=== PATIENT | female | born 1935 | race Caucasian/White ===

== ENCOUNTER 2024-01-11 14:38 | Emergency (ER) | payer MEDICARE, OTHER ==
[~2024-01-11] VITALS: Ht 149.9 cm; Wt 52.2 kg
[2024-01-11 16:05] LABS: BASOPHILS % (AUTO) 0.2 % (0.0-2.0); EOSINOPHILS # (AUTO) 0.1 K/uL (0.0-0.7); EOSINOPHILS % (AUTO) 1.2 % (0.0-7.0); HEMATOCRIT 43.6 % (31.2-41.9); HEMOGLOBIN 14.4 g/dL (10.9-14.3); LYMPHOCYTES # (AUTO) 1.1 K/uL (0.8-4.8); LYMPHOCYTES % (AUTO) 13.5 % (20.5-51.5); MEAN CORPUSCULAR HEMOGLOBIN 29.7 uug (24.7-32.8); MEAN CORPUSCULAR HGB CONC 33 g/dL (32.3-35.6); MEAN CORPUSCULAR VOLUME 89.8 fL (75.5-95.3); MONOCYTES # (AUTO) 0.7 K/uL (0.1-1.30); MONOCYTES % (AUTO) 8.9 % (0.0-11.0); NEUTROPHILS # (AUTO) 6.2 K/uL (1.8-8.9); NEUTROPHILS % (AUTO) 76.2 % (38.5-71.5); PLATELET COUNT (AUTO) 173 K/uL (179-408); RED BLOOD CELL COUNT(AUTO) 4.85 MIL/uL (3.63-4.92); RED CELL DISTRIBUTION WIDTH 13.4 % (12.3-17.7); WHITE BLOOD COUNT (AUTO) 8.1 K/uL (3.8-11.8)
[2024-01-11 16:06] LABS: DIFFERENTIAL COMMENT 1
[2024-01-11] MEDS ORDERED: SWABABLE VALVE TRANSFER SET EA MC ONE (16:08)
[2024-01-11] MEDS ORDERED: IOHEXOL 300MG/ML 100 ML INFUS..BTL ONE (16:08)
[2024-01-11] MEDS ORDERED: IV NORMAL SALINE 250 ML IV ONE (16:08)
[2024-01-11 16:13] LABS: CALCIUM 8.9 mg/dL (8.5-10.1); CARBON DIOXIDE 30 mmol/L (21-32); CHLORIDE 104 mmol/L (98-107); CREATININE 0.6 mg/dL (0.6-1.3); GLUCOSE 75 mg/dL (74-106); POTASSIUM 4.1 mmol/L (3.5-5.1); SODIUM SERUM 140 mmol/L (136-145); UREA NITROGEN, BLOOD 17 mg/dL (7-18)
[2024-01-11 16:19] LABS: ALANINE AMINOTRANSFERASE 14 U/L (14-59); ALBUMIN 3.5 g/dL (3.4-5.0); ALKALINE PHOSPHATASE 57 U/L (50-136); ASPARTATE AMINOTRANSFERASE 14 U/L (15-37); BILIRUBIN,DIRECT 0.1 mg/dL (0.0-0.2); BILIRUBIN,TOTAL 0.5 mg/dL (0.2-1.0); LIPASE 27 U/L (16-77); TOTAL PROTEIN, SERUM 7.2 g/dL (6.4-8.2)
[2024-01-11] MEDS ORDERED: ONDANSETRON 4 MG/2 ML VIAL ONE (16:46)
[2024-01-11] MEDS: ONDANSETRON 4 MG/2 ML VIAL IV ONE (16:47)
[2024-01-11] MEDS: IV NORMAL SALINE 1000 ML BAG IV ONE (16:47)
[2024-01-11] MEDS ORDERED: MAGNESIUM HYDROXIDE 30 ML LIQUID UDC ONE (18:17)
[2024-01-11] MEDS: MAGNESIUM HYDROXIDE 30 ML LIQUID UDC PO ONE (18:18)
[2024-01-11 18:37] LABS: *BILIRUBIN,URIN NEGATIVE (NEGATIVE); *BLOOD, URINE NEGATIVE (NEGATIVE); *CLARITY,URINE CLEAR (CLEAR); *COLOR,URINE YELLOW (YELLOW); *KETONES,URINE NEGATIVE (NEGATIVE); *PROTEIN,URINE NEGATIVE (NEGATIVE); *UROBILINOGEN,URINE 0.2 E.U./dl (NORMAL); LEUKOCYTE ESTERASE ,URINE NEGATIVE (NEGATIVE); NITRITE, URINE NEGATIVE (NEGATIVE); UGLUCOSE NEGATIVE (NEGATIVE)
[2024-01-11 19:02] VITALS: BP 104/57; O2SAT 98
== END 2024-01-11 19:03 | disposition home or self-care (01) ==
LOC: ER 14:51
DX: K56.41 Fecal impaction (principal); R10.84 Generalized abdominal pain; R10.11 Right upper quadrant pain; R50.9 Fever, unspecified; R19.7 Diarrhea, unspecified; Z88.0 Allergy status to penicillin
CPT/HCPCS: 99285; 74177; 96374; 71045; 96361; 80076; 80048; 81003; 83690; 85025; 36415; 93005; 83605; J2405; Q9967; J7040; A4606; A4663